=== PATIENT | male | born 1970 | race Caucasian/White ===

== ENCOUNTER → 2024-02-15 | Emergency (ER) | payer MEDICAID, OTHER ==
[~2024-02-15] VITALS: Ht 170.2 cm; Wt 79.4 kg
[~2024-02-15] MED LIST: AZIT250T PO
[2024-02-15 13:28] VITALS: BP 121/83; TEMP 98.6; O2SAT 99
== END | disposition home or self-care (01) ==
LOC: ER 19:46
DX: J32.9 Chronic sinusitis, unspecified (principal); J02.9 Acute pharyngitis, unspecified; F17.200 Nicotine dependence, unspecified, uncomplicated; Z86.19 Personal history of other infectious and parasitic diseases

== ENCOUNTER 2024-02-23 10:17 | Emergency (ER) | payer MEDICAID ==
[~2024-02-23] VITALS: Ht 170.2 cm; Wt 79.8 kg
[2024-02-23 11:30] LABS: BASOPHILS # (AUTO) 0.1 K/uL (0.0-0.2); EOSINOPHILS # (AUTO) 0.5 K/uL (0.0-0.7); EOSINOPHILS % (AUTO) 5.9 % (0.0-6.0); HEMATOCRIT 42 % (39-51); LYMPHOCYTES # (AUTO) 2.3 K/uL (0.8-4.8); LYMPHOCYTES % (AUTO) 29.9 % (20.0-44.0); MEAN CORPUSCULAR HEMOGLOBIN 32 PG (26.0-33.0); MEAN CORPUSCULAR HGB CONC 35 g/dl (31.0-36.0); MEAN CORPUSCULAR VOLUME 90 fL (80-96); MONOCYTES # (AUTO) 0.4 K/uL (0.1-1.30); MONOCYTES % (AUTO) 5.5 % (2.0-12.0); NEUTROPHILS # (AUTO) 4.4 K/uL (1.8-8.9); NEUTROPHILS % (AUTO) 57.7 % (43.0-81.0); PLATELET COUNT (AUTO) 241 K/uL (150-450); RED BLOOD CELL COUNT(AUTO) 4.69 MIL/uL (4.5-6.0); RED CELL DISTRIBUTION WIDTH 13.1 % (11.5-15.0); WHITE BLOOD COUNT (AUTO) 7.6 K/uL (4.3-11.0)
[2024-02-23 11:43] LABS: CALCIUM, SERUM 8.6 mg/dL (8.5-10.1); CARBON DIOXIDE 28 mmol/L (21-32); CHLORIDE 106 mmol/L (98-107); CREATININE 0.7 mg/dL (0.6-1.3); GLUCOSE 102 mg/dL (74-106); POTASSIUM 3.6 mmol/L (3.5-5.1); SODIUM SERUM 140 mmol/L (136-145); UREA NITROGEN, BLOOD 13 mg/dL (7-18)
[2024-02-23 11:52] LABS: ALANINE AMINOTRANSFERASE 65 U/L (12-78); ALBUMIN 3.4 g/dL (3.4-5.0); ALKALINE PHOSPHATASE 73 U/L (46-116); ASPARTATE AMINOTRANSFERASE 27 U/L (15-37); BILIRUBIN,DIRECT 0.1 mg/dL (0.0-0.2); BILIRUBIN,TOTAL 0.3 mg/dL (0.2-1.0)
[2024-02-23] MEDS ORDERED: dexAMETHasone 1 MG TABLET PO ONE (12:00)
[2024-02-23 12:18] VITALS: BP 118/75; TEMP 98; O2SAT 98
== END 2024-02-23 12:19 | disposition home or self-care (01) ==
LOC: ER 10:27
DX: R07.0 Pain in throat (principal); R07.89 Other chest pain; F20.9 Schizophrenia, unspecified; F17.200 Nicotine dependence, unspecified, uncomplicated; Z87.19 Personal history of other diseases of the digestive system
CPT/HCPCS: 36415; 71045-TC; 80048-TC; 80076-TC; 84484-TC; 85025-TC; 85378-TC

== ENCOUNTER 2024-03-30 15:40 | Emergency (ER) | payer MEDICAID ==
[~2024-03-30] VITALS: Ht 175.3 cm; Wt 82.1 kg
[2024-03-30 16:07] VITALS: BP 112/74; TEMP 98.7
[2024-03-30] MEDS ORDERED: AZIT250T13 PO (18:16)
[2024-03-30] MEDS ORDERED: IBUP-1955 PO (18:16)
[2024-03-30] MEDS ORDERED: dexAMETHasone 1 MG/ML UDC ONE (18:26)
[2024-03-30] MEDS: dexaMETHasone SOD PHOSPHATE 4 MG/ML VIAL MC ONE (18:40)
[2024-03-30 18:46] VITALS: O2SAT 100
== END 2024-03-30 18:49 | disposition home or self-care (01) ==
LOC: ER 15:56
DX: R07.0 Pain in throat (principal); F20.9 Schizophrenia, unspecified; M54.2 Cervicalgia; F17.200 Nicotine dependence, unspecified, uncomplicated; Z79.899 Other long term (current) drug therapy
CPT/HCPCS: 99284; 70490; J8540

== ENCOUNTER 2025-10-06 17:38 | Emergency (ER) | payer MEDICAID, OTHER ==
[~2025-10-06] VITALS: Ht 170.2 cm; Wt 78.0 kg
[~2025-10-06 17:38] MED LIST changes: +AZIT250T13 PO; +IBUP-1955 PO
[2025-10-06 19:05] LABS: PLATELET COUNT (AUTO) 392 K/uL (150-450); RED BLOOD CELL COUNT(AUTO) 3.98 MIL/uL (4.5-6.0); RED CELL DISTRIBUTION WIDTH 14.9 % (11.5-15.0); WHITE BLOOD COUNT (AUTO) 6.9 K/uL (4.3-11.0)
[2025-10-06 19:20] LABS: ERYTHROCYTE SEDIMENTATION RATE 23 MM/HR (0-20)
[2025-10-06 19:22] LABS: ASPARTATE AMINOTRANSFERASE 29.0 U/L (15-37); CALCIUM, SERUM 8.2 mg/dL (8.5-10.1); CREATININE 0.5 mg/dL (0.6-1.3); SODIUM SERUM 139.0 mmol/L (136-145); TOTAL PROTEIN, SERUM 6.9 g/dL (6.4-8.2); UREA NITROGEN, BLOOD 11.0 mg/dL (7-18)
[2025-10-07 02:36] VITALS: BP 128/88; TEMP 98.1; O2SAT 99
== END 2025-10-06 21:00 ==
LOC: ER 17:59
DX: K40.90 Unilateral inguinal hernia, without obstruction or gangrene, not specified as recurrent (principal); F17.200 Nicotine dependence, unspecified, uncomplicated
CPT/HCPCS: 36415; 71045-TC; 80053-TC; 83690-TC; 85025-TC; 85652-TC; 86140-TC